=== PATIENT | male | born 1935 | race Caucasian/White ===

== ENCOUNTER 2020-01-18 21:04 | Inpatient (IN) | payer BC, MEDICARE ==
[2020-01-18] MEDS ORDERED: SODIUM CHLORIDE 0.9% 1,000 ML IV STA (21:24)
--- NOTE | 2020-01-18 21:27 | ED ---
General Adult HPI - General Chief complaint: Altered Mental Status Stated complaint: Weakness Time Seen by Provider: 01/18/20 21:06 Source: patient, EMS, RN notes reviewed Mode of arrival: EMS Limitations: altered mental status - History of Present Illness Initial comments: Patient is a pleasant 84-year-old male presenting to the emergency Department wi th left-sided weakness. Onset of symptoms was yesterday morning, over 24 hours ago now. Patient was noticed to have left-sided arm and leg weakness is reported by EMS. Patient states he feels fine and has no complaints. Patient denies any weakness. Patient denies confusion. EMS reports the patient does have dementia. Unclear patient has history of similar symptoms previously. - Related Data Home Medications Medication Instructions Recorded Confirmed Aspirin EC [Ecotrin Low Dose] 81 mg PO BID 09/05/14 01/18/20 Atenolol [Tenormin] 25 mg PO DAILY 09/05/14 01/18/20 Donepezil [Aricept] 20 mg PO HS 09/05/14 01/18/20 Memantine [Namenda] 10 mg PO BID 09/05/14 01/18/20 Omeprazole [PriLOSEC] 20 mg PO AC-BRKFST 09/05/14 01/18/20 Nitroglycerin Sl Tabs [Nitrostat] 0.4 mg SUBLINGUAL Q5M PRN 06/08/16 01/18/20 Etodolac [Lodine] 400 mg PO BID 01/18/20 01/18/20 Multivitamins, Thera [Multivitamin 1 tab PO DAILY 01/18/20 01/18/20 (formulary)] Simvastatin [Zocor] 80 mg PO HS 01/18/20 01/18/20 Allergies Allergy/AdvReac Type Severity Reaction Status Date / Time latex Allergy Rash/Hives Verified 01/18/20 22:01 Review of Systems ROS Statement: Those systems with pertinent positive or pertinent negative responses have been documented in the HPI. ROS Other: All systems not noted in ROS Statement are negative. Constitutional: Denies: fever Eyes: Denies: eye pain ENT: Denies: ear pain Respiratory: Denies: cough, dyspnea Cardiovascular: Denies: chest pain Endocrine: Denies: fatigue Gastrointestinal: Denies: abdominal pain Genitourinary: Denies: dysuria Musculoskeletal: Denies: back pain Skin: Denies: rash Neurological: Reports: as per HPI Past Medical History Past Medical History: Coronary Artery Disease (CAD), Chest Pain / Angina, Dementia, Hyperlipidemia, Hypertension History of Any Multi-Drug Resistant Organisms: None Reported Past Surgical History: Heart Catheterization With Stent Additional Past Surgical History / Comment(s): Eye surgery Past Anesthesia/Blood Transfusion Reactions: No Reported Reaction Date of Last Stent Placement:: 2006 Past Psychological History: No Psychological Hx Reported Smoking Status: Never smoker Past Alcohol Use History: None Reported Past Drug Use History: None Reported - Past Family History Mother Family Medical History: No Reported History General Exam Limitations: altered mental status General appearance: alert, in no apparent distress Head exam: Present: normocephalic Eye exam: Present: normal appearance, PERRL, EOMI ENT exam: Present: normal oropharynx Neck exam: Present: normal inspection Respiratory exam: Present: normal lung sounds bilaterally Cardiovascular Exam: Present: regular rate, normal rhythm GI/Abdominal exam: Present: soft. Absent: tenderness Extremities exam: Present: normal inspection Neurological exam: Present: alert, CN II-XII intact Expanded Neurological exam: Present: protecting the airway Patient oriented to: Present: person, place. Absent: time Speech: Present: fluid speech Cranial nerves: EOM's Intact: Normal Sensory exam: Upper Extremity Light Touch: Normal, Lower Extremity Light Touch: Normal Motor strength exam: RUE: 5, LUE: 4, RLE: 5, LLE: 4 Eye Response: (4) open spontaneously Motor Response: (6) obeys commands Verbal Response: (5) oriented Psychiatric exam: Present: normal affect, normal mood Skin exam: Present: normal color Course Vital Signs 01/18/20 21:12 Temperature 98.0 F Pulse Rate 64 Respiratory 16 Rate Blood Pressure 142/74 O2 Sat by Pulse 97 Oximetry EKG Findings - EKG Comments: EKG Findings:: Sinus rhythm at 63. First-degree AV block GA of 214. QRS 92. QT 408. QTC 417. Left axis. Normal QRS. No acute ST change Medical Decision Making - Medical Decision Making Patient reevaluated and resting comfortably in bed. Further discussion had with . She states onset of symptoms was noticed yesterday morning. This makes last known well up to 48 hours. Patient is not a candidate for emergent thrombectomy however secondary to CT results CTa will be ordered. Patient is also not a candidate for TPA secondary to last known well 48 hours. Case was discussed in detail with Dr. pang, who will admit covering for Dr. Hart. She will admit. Patient and family updated on results and plan. - Lab Data Result diagrams: 01/18/20 22:05 01/18/20 22:05 Lab Results 01/18/20 01/18/20 01/18/20 Range/Units 22:05 22:05 22:05 WBC 5.6 (3.8-10.6) k/uL RBC 4.35 (4.30-5.90) m/uL Hgb 14.3 (13.0-17.5) gm/dL Hct 42.4 (39.0-53.0) % MCV 97.3 (80.0-100.0) fL MCH 32.8 (25.0-35.0) pg MCHC 33.7 (31.0-37.0) g/dL RDW 12.8 (11.5-15.5) % Plt Count 229 (150-450) k/uL Neutrophils % 62 % Lymphocytes % 22 % Monocytes % 9 % Eosinophils % 4 % Basophils % 0 % Neutrophils # 3.4 (1.3-7.7) k/uL Lymphocytes # 1.2 (1.0-4.8) k/uL Monocytes # 0.5 (0-1.0) k/uL Eosinophils # 0.2 (0-0.7) k/uL Basophils # 0.0 (0-0.2) k/uL PT 9.9 (9.0-12.0) sec INR 1.0 (<1.2) APTT 23.9 (22.0-30.0) sec Sodium 132 L (137-145) mmol/L Potassium 4.3 (3.5-5.1) mmol/L Chloride 97 L (98-107) mmol/L Carbon Dioxide 27 (22-30) mmol/L Anion Gap 8 mmol/L BUN 20 (9-20) mg/dL Creatinine 0.79 (0.66-1.25) mg/dL Est GFR (CKD-EPI)AfAm >90 (>60 ml/min/1.73 sqM) Est GFR (CKD-EPI)NonAf 82 (>60 ml/min/1.73 sqM) Glucose 118 H (74-99) mg/dL Calcium 9.1 (8.4-10.2) mg/dL Total Bilirubin 0.4 (0.2-1.3) mg/dL AST 26 (17-59) U/L ALT 20 (4-49) U/L Alkaline Phosphatase 65 (38-126) U/L Total Protein 6.4 (6.3-8.2) g/dL Albumin 3.8 (3.5-5.0) g/dL - Radiology Data Radiology results: report reviewed (Computed tomography scan of the brain shows degeneration and suspected remote ischemic changes. With no evidence of acute hemorrhage. Hyperdensity of the basilar artery. Area of ischemia left occipital lobe.), image reviewed (Two-view chest x-ray shows mild infiltrate/atelectasis) Disposition Clinical Impression: CVA (cerebral vascular accident) Disposition: ADMITTED IP TO THIS HOSP Is patient prescribed a controlled substance at d/c from ED?: No Referrals: Abhinav Hart III, MD [Primary Care Provider] - 1-2 days Decision Time: 22:47
--- NOTE | 2020-01-18 22:10 | XR ---
EXAMINATION TYPE: XR chest 2V DATE OF EXAM: 01/18/2020 COMPARISON: 09/05/2014 HISTORY: altered mental status. Chest pain. TECHNIQUE: FINDINGS: There is some linear density in the mid and lower lung andrade. There is elevation of the di aphragms. There is no heart failure. Thoracic aorta appears intact. Bony thorax is intact. IMPRESSION: There is some mild linear infiltrate and atelectasis at the lung bases slightly worse gay n last exam. No heart failure seen.
--- NOTE | 2020-01-18 22:11 | CT ---
EXAMINATION TYPE: CT brain wo con DATE OF EXAM: 01/18/2020 COMPARISON: 11/01/2011 HISTORY: Confusion. CT DLP: 1129.4 mGycm Automated exposure control for dose reduction was used. FINDINGS: Areas of hyperdensity within the basilar artery. This may be calcification. Moderate generalized dege nerative change seen. Area of low-attenuation seen in the left occipital lobe is nonspecific likely i n the basis of remote ischemia. Faint areas of abnormal signal involving the basal ganglia suggestive of remote ischemia. Low-attenuation the white matter is nonspecific but most likely in the bases rem ote ischemia. Moderate generalized degenerative changes. Punctate areas of abnormal density in the ba keshia ganglia most typical remote ischemia. IMPRESSION: 1. Degenerative and suspected remote ischemic change with no evidence of acute hemorrhage. 2. There is a hyperdensity seen within the basilar artery on image 12. This could represent a calcifi cation. Recommend correlation with CTA to exclude thrombosis. 3. Findings suggest area of ischemia involving the left occipital lobe not seen on the prior exam. Th is could been the basis of a subacute to chronic infarct. Correlate with MRI.
[2020-01-18 22:32] LABS: Basophils % (A) 0 %; Eosinophils # (A) 0.2 k/uL (0-0.7); Eosinophils % (A) 4 %; HCT 42.4 % (39.0-53.0); HGB 14.3 gm/dL (13.0-17.5); Lymphocytes # (A) 1.2 k/uL (1.0-4.8); Lymphocytes % (A) 22 %; MCH 32.8 pg (25.0-35.0); MCHC 33.7 g/dL (31.0-37.0); MCV 97.3 fL (80.0-100.0); Mean Platelet Volume 7.4; Monocytes # (A) 0.5 k/uL (0-1.0); Monocytes % (A) 9 %; Neutrophils # (A) 3.4 k/uL (1.3-7.7); Neutrophils % (A) 62 %; Platelet Count 229 k/uL (150-450); RBC 4.35 m/uL (4.30-5.90); RDW 12.8 % (11.5-15.5); WBC 5.6 k/uL (3.8-10.6)
[2020-01-18 22:34] LABS: ALT 20 U/L (4-49); AST 26 U/L (17-59); African American GFR (CKD) >90 (>60 ml/min/1.73 sqM); Albumin 3.8 g/dL (3.5-5.0); Alkaline Phosphatase 65 U/L (38-126); Anion Gap 8 mmol/L; Blood Urea Nitrogen 20 mg/dL (9-20); Calcium 9.1 mg/dL (8.4-10.2); Carbon Dioxide 27 mmol/L (22-30); Chloride 97 mmol/L (98-107); Glucose 118 mg/dL (74-99); Non-African American GFR(CKD) 82 (>60 ml/min/1.73 sqM); Potassium 4.3 mmol/L (3.5-5.1); Sodium 132 mmol/L (137-145); Total Bilirubin 0.4 mg/dL (0.2-1.3); Total Protein 6.4 g/dL (6.3-8.2)
[2020-01-18 22:37] LABS: Partial Thromboplastin Time 23.9 sec (22.0-30.0); Prothrombin Time 9.9 sec (9.0-12.0)
[2020-01-18] MEDS ORDERED: ASPIRIN 325 MG TAB PO STA (22:52)
[2020-01-18] MEDS: SODIUM CHLORIDE 0.9% 1,000 ML IV SCH (23:18)
[2020-01-18] MEDS: ASPIRIN 325 MG TAB PO SCH (23:29)
--- NOTE | 2020-01-18 23:41 | CT ---
EXAMINATION TYPE: CT angio head neck DATE OF EXAM: 01/18/2020 COMPARISON: None HISTORY: AMS CT DLP: 615.2 mGycm Automated exposure control for dose reduction was used. CONTRAST: Performed with IV Contrast, patient injected with 65 mL of Isovue 370. There are 3-D post processed images. There is normal branching pattern of the great vessels on the aortic arch. There is bilateral arteria l flow in the subclavian arteries. There is arterial flow in the common internal and external carotid arteries bilaterally. There is plaque formation at the right carotid artery bifurcation and lumen na rrowing up to 25%. There is arterial flow in both vertebral arteries. There is arterial flow in the v ertebrobasilar artery system. There is no evidence of carotid or vertebral artery aneurysm or dissect ion. There is arterial flow in the anterior middle and posterior cerebral arteries. There is normal contra st opacification of the venous sinuses. There is no significant flow in the posterior communicating a rteries. There is apparent stenosis of the proximal left anterior cerebral artery. Right anterior cer ebral artery probably fills to a large extent through the anterior communicating artery from the left side. There is no mass effect. There is no evidence of intracranial aneurysm or neovascularity. 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 Minimal plaque at the right carotid artery bifurcation.
[2020-01-19 06:19] LABS: Cholesterol 137 mg/dL (<200); HDL Cholesterol 53 mg/dL (40-60); LDL Cholesterol,Calculated 68 mg/dL (0-99); Triglycerides 79 mg/dL (<150)
[2020-01-19] MEDS ORDERED: ASPIRIN 325 MG TAB PO STA (10:25)
--- NOTE | 2020-01-19 12:37 | ECHOF ---
Referral Reason:Thrombus MEASUREMENTS -------- HEIGHT: 177.8 cm WEIGHT: 87.1 kg BP: 158/80 RVIDd: 3.1 cm (< 3.3) IVSd: 1.5 cm (0.6 - 1.1) LVIDd: 4.6 cm (3.9 - 5.3) LVPWd: 1.5 cm (0.6 - 1.1) IVSs: 1.9 cm LVIDs: 2.3 cm LVPWs: 1.9 cm LA Diam: 2.9 cm (2.7 - 3.8) LAESV Index (A-L): 19.56 ml/m Ao Diam: 3.5 cm (2.0 - 3.7) AV Cusp: 2.1 cm (1.5 - 2.6) MV EXCURSION: 14.924 mm (> 18.000) MV EF SLOPE: 47 mm/s (70 - 150) EPSS: 0.4 cm MV E Paulo: 0.79 m/s MV DecT: 214 ms MV A Paulo: 1.01 m/s MV E/A Ratio: 0.78 FINDINGS -------- Sinus rhythm. This was a technically adequate study. The left ventricular size is normal. There is moderate concentric left ventricular hypertrophy. O verall left ventricular systolic function is normal with, an EF between 55 - 60 %. The right ventricle is normal in size. Normal LA size by volume 22+/-6 ml/m2. The right atrial size is normal. Interatrial and interventricular septum intact. There is mild aortic valve sclerosis. There is mild aortic regurgitation. Mild mitral annular calcification present. Mild mitral regurgitation is present. The tricuspid valve appears structurally normal. No regurgitation noted Trace/mild (physiologic) pulmonic regurgitation. The aortic root size is normal. Normal inferior vena cava with normal inspiratory collapse consistent with estimated right atrial pre ssure of 5 mmHg. There is no pericardial effusion. CONCLUSIONS -------- 1. There is moderate concentric left ventricular hypertrophy. 2. Overall left ventricular systolic function is normal with, an EF between 55 - 60 %. 3. Normal LA size by volume 22+/-6 ml/m2. 4. There is mild aortic valve sclerosis. 5. There is mild aortic regurgitation. 6. Mild mitral regurgitation is present. 7. Trace/mild (physiologic) pulmonic regurgitation. HEALTH INFORMATION PROVIDER: Laine Ashley RDCS
[2020-01-19] MEDS ORDERED: NITROGLYCERIN SL TABS 0.4 MG TAB SUBLINGUAL PRN (13:21)
[2020-01-19] MEDS ORDERED: NON FORMULARY DRUG (Aspirin Ec 81 MG) PO SCH (13:30)
--- NOTE | 2020-01-19 15:12 | P.CNNES ---
History of Present Illness Consult date: 01/19/20 Requesting physician: Samson Martin Reason for Consult: CVA History of Present Illness: Patient is a 84-year-old male brought to the hospital yesterday at 9:04 PM for left-sided weakness that has been present for over 24 hours. Patient has history of dementia, therefore not able to provide any history. Patient was brought to the hospital for left-sided weakness that has been present for >24 hours. He was noted to have left-sided arm and leg weakness as per EMS report. Patient did not complain of any focal symptoms. Patient was not a candidate for TPA. Patient's blood pressure on arrival was 142/74, pulse rate [address] head showed degenerative and suspected remote ischemic change with no evide nce of acute hemorrhage. There is hyperdensity seen within the basilar artery on image 12. This could represent calcification. Recommend correlation with CTA to exclude thrombosis. Findings suggest area of ischemia involving the left occipital lobe not seen on the prior exam. This could be on the basis of subacute to chronic infarct. Correlate with MRI. Chest x-ray showed some mild linear infiltrate and atelectasis at the lung bases slightly worse than last exam. No heart failure. EKG showed sinus rhythm with first-degree AV block. Left axis deviation. Cannot rule out anterior infarct, age undetermined. 2-D echo showed moderate concentric LVH, EF is between 55-60%. Normal left atrial size. Mild aortic valve sclerosis. CT angiography of head and neck showed a long segment of stenosis of the proximal right anterior cerebral artery. Minimal plaque at the right carotid artery bifurcation. The vertebrobasilar system appears intact. Normal contrast in the venous sinuses. Patient's lipid panel showed cholesterol 137, LDL 68, HDL 53, triglycerides 79. Liver panel normal, sodium 132 potassium 4.3. CBC normal. UA negative. Patient does take aspirin 81 mg, simvastatin 80 mg, donepezil 10 mg and Namenda 10 mg twice a day at home. Patient states that he lives in "[facility]". He states he has 4 children, 3 boys and a girl. He denies use of tobacco, alcohol or diabetes. Review of Systems Denies headache, problem with the vision holster so to dysphagia. Denies chest pain abdominal pain nausea vomiting diarrhea. Past Medical History Past Medical History: Coronary Artery Disease (CAD), Chest Pain / Angina, Dementia, Hyperlipidemia, Hypertension History of Any Multi-Drug Resistant Organisms: None Reported Past Surgical History: Heart Catheterization With Stent Additional Past Surgical History / Comment(s): Eye surgery Past Anesthesia/Blood Transfusion Reactions: No Reported Reaction Date of Last Stent Placement:: 2006 Past Psychological History: No Psychological Hx Reported Smoking Status: Never smoker Past Alcohol Use History: None Reported Past Drug Use History: None Reported - Past Family History Mother Family Medical History: No Reported History Medications and Allergies Home Medications Medication Instructions Recorded Confirmed Type Aspirin EC [Ecotrin Low Dose] 81 mg PO BID 09/05/14 01/18/20 History Atenolol [Tenormin] 25 mg PO DAILY 09/05/14 01/18/20 History Donepezil [Aricept] 20 mg PO HS 09/05/14 01/18/20 History Memantine [Namenda] 10 mg PO BID 09/05/14 01/18/20 History Omeprazole [PriLOSEC] 20 mg PO AC-BRKFST 09/05/14 01/18/20 History Nitroglycerin Sl Tabs [Nitrostat] 0.4 mg SUBLINGUAL Q5M PRN 06/08/16 01/18/20 History Etodolac [Lodine] 400 mg PO BID 01/18/20 01/18/20 History Multivitamins, Thera [Multivitamin 1 tab PO DAILY 01/18/20 01/18/20 History (formulary)] Simvastatin [Zocor] 80 mg PO HS 01/18/20 01/18/20 History Allergies Allergy/AdvReac Type Severity Reaction Status Date / Time latex Allergy Rash/Hives Verified 01/18/20 22:01 Physical Examination - Vital Signs Vital Signs: Vital Signs Temp Pulse Pulse Resp BP BP Pulse Ox 01/19/20 12:00 98 F 61 16 147/63 98 01/19/20 08:00 97.9 F 69 16 151/82 95 01/19/20 04:00 99.2 F 62 17 158/80 95 01/19/20 00:40 58 L 18 01/19/20 00:26 97.9 F 58 L 18 144/75 97 01/18/20 23:24 60 16 146/79 97 01/18/20 21:12 98.0 F 64 16 142/74 97 Intake and Output 04/09/2601/19/20 01/19/20 22:59 06:59 14:59 Intake Total 400 Output Total 200 Balance 400 -200 Intake: Intake, IV Titration 400 Amount Sodium Chloride 0.9% 1, 400 000 ml @ 100 mls/hr IV . Q10H STA Rx#:[id number] Output: Urine 200 Other: Voiding Method Urinal Urinal Incontinent Incontinent Weight 81.647 kg 87.5 kg On examination patient is an elderly male, in no distress. Patient is alert and awake. Speech and language functions are normal. Patient can name and repeat very well. Patient thinks it is winter season, the month of August, could not tell the year. Patient could not tell name of the current president, even after he was given 5 choices, she could not pick Trump. He states he was born in 2034 and he is in "70s" age. Patient was able to look at the front board stating [place] Simmons. He knew that he is in [place]. On cranial examination pupils are round and reactive to light, visual andrade are full on confrontation with no neglect. Extraocular muscles are intact. Face is symmetric and tongue protrudes the midline. On muscle strength testing patient has mild left pronator drift. The strength is normal in the arms and legs, except left hip, which was 5-, rest of the strength testing is normal in the arms and legs bilaterally. Sensations are equal with no neglect on double simultaneous stimulation. Patient has ataxia for [id number] testing on the left. Reflexes are symmetric, and patient has Babinskis on the left side. Bulk of muscles normal. Results - Laboratory Findings CBC and BMP: 01/18/20 22:05 01/18/20 22:05 Abnormal Lab Findings: Abnormal Labs 01/18/20 22:05 Sodium 132 L Chloride 97 L Glucose 118 H Assessment and Plan Assessment: * 84-year-old male with history of dementia, presented with mild left-sided weakness. Possible CVA versus TIA. * Cognitive impairment. Plan: * Patient had a possible CVA. Workup did not reveal any evidence of embolic source. * We will check MRI of the brain to confirm acute stroke. * Hemoglobin A1c. * Patient was on aspirin 81 mg daily. The dose has been increased to 325 mg. Continue Lipitor 40 mg. * Continue Aricept and Namenda 10 mg twice a day for dementia.
[2020-01-19] MEDS: ATORVASTATIN 40 MG TAB PO SCH (15:30)
[2020-01-19] MEDS: SODIUM CHLORIDE 0.9% 1,000 ML IV SCH ×2 (17:45→19:55)
[2020-01-19] MEDS: DONEPEZIL 10 MG TAB PO SCH (19:54)
[2020-01-19] MEDS: ETODOLAC 400 MG TAB PO SCH (19:54)
[2020-01-19] MEDS: MEMANTINE 10 MG TAB PO SCH (19:55)
[2020-01-19] MEDS ORDERED: QUEtiapine 25 MG TAB PO PRN (21:18)
[2020-01-19 21:53] LABS: Hemoglobin A1C 6.1 % (4.0-6.0)
--- NOTE | 2020-01-20 01:34 | P.HPIM ---
History of Present Illness H&P Date: 01/19/20 Chief Complaint: CVA Mr. Borja is an 84-year-old male with a past medical history of coronary artery disease, dementia, hypertension, hyperlipidemia coming to the hospital with a chief complaint of left-sided weakness that has been going on for almost 1 day. Patient is a very poor historian due to history of dementia so most of the history is obtained from the nursing staff report and ER notes. At the time of admission he was not a candidate for TPA. CT of the head was done showing remote ischemic changes with no evidence of acute hemorrhage. 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 EKG showed first-degree AV heart block. Patient's labs have been reviewed at the time of admission sodium 134 potassium 4.3 chloride 97 BUN 20 creatinine 0.79 hemoglobin A1c of 6.1 troponin less than 0.012 CBC within normal limits. He has been admitted for further management with neurology consult. Review of systems -could not be done as the patient is confused and has been trying to get out of the bed. As per the nursing staff patient has dementia and has been trying to get out of the bed and he keeps saying that he has to urinate even though she helped him few minutes back. Review of Systems ROS unobtainable: due to mental status Past Medical History Past Medical History: Coronary Artery Disease (CAD), Chest Pain / Angina, Dementia, Hyperlipidemia, Hypertension History of Any Multi-Drug Resistant Organisms: None Reported Past Surgical History: Heart Catheterization With Stent Additional Past Surgical History / Comment(s): Eye surgery Past Anesthesia/Blood Transfusion Reactions: No Reported Reaction Date of Last Stent Placement:: 2006 Past Psychological History: No Psychological Hx Reported Smoking Status: Never smoker Past Alcohol Use History: None Reported Past Drug Use History: None Reported - Past Family History Mother Family Medical History: No Reported History Medications and Allergies Home Medications Medication Instructions Recorded Confirmed Type Aspirin EC [Ecotrin Low Dose] 81 mg PO BID 09/05/14 01/18/20 History Atenolol [Tenormin] 25 mg PO DAILY 09/05/14 01/18/20 History Donepezil [Aricept] 20 mg PO HS 09/05/14 01/18/20 History Memantine [Namenda] 10 mg PO BID 09/05/14 01/18/20 History Omeprazole [PriLOSEC] 20 mg PO AC-BRKFST 09/05/14 01/18/20 History Nitroglycerin Sl Tabs [Nitrostat] 0.4 mg SUBLINGUAL Q5M PRN 06/08/16 01/18/20 History Etodolac [Lodine] 400 mg PO BID 01/18/20 01/18/20 History Multivitamins, Thera [Multivitamin 1 tab PO DAILY 01/18/20 01/18/20 History (formulary)] Simvastatin [Zocor] 80 mg PO HS 01/18/20 01/18/20 History Allergies Allergy/AdvReac Type Severity Reaction Status Date / Time latex Allergy Rash/Hives Verified 01/18/20 22:01 Physical Exam Vitals: Vital Signs Temp Pulse Pulse Resp BP BP Pulse Ox 01/19/20 12:00 98 F 61 16 147/63 98 01/19/20 08:00 97.9 F 69 16 151/82 95 01/19/20 04:00 99.2 F 62 17 158/80 95 01/19/20 00:40 58 L 18 01/19/20 00:26 97.9 F 58 L 18 144/75 97 01/18/20 23:24 60 16 146/79 97 01/18/20 21:12 98.0 F 64 16 142/74 97 Intake and Output 01/18/20 01/19/20 01/19/20 22:59 06:59 14:59 Intake Total 400 Output Total 200 Balance 400 -200 Intake: Intake, IV Titration 400 Amount Sodium Chloride 0.9% 1, 400 000 ml @ 100 mls/hr IV . Q10H STA Rx#:[id number] Output: Urine 200 Other: Voiding Method Urinal Urinal Incontinent Incontinent Weight 81.647 kg 87.5 kg Limitations: altered mental status General appearance: alert, in no apparent distress HENT - normcehalic, no pallor, no icterus Respiratory exam: normal lung sounds bilaterally Cardiovascular Exam: regular rate, normal rhythm GI/Abdominal exam: soft. Absent: tenderness Extremities exam: No edema. Neurological exam: Present: alert, follows simple commands, mild weakness of the left upper extremity. Psychiatric exam: Present: normal affect, normal mood Skin exam: Present: normal color Results CBC & Chem 7: 01/18/20 22:05 01/18/20 22:05 Labs: Abnormal Lab Results - Last 24 Hours (Table) 01/18/20 Range/Units 22:05 Sodium 132 L (137-145) mmol/L Chloride 97 L (98-107) mmol/L Glucose 118 H (74-99) mg/dL Thrombosis Risk Factor Assmnt - Choose All That Apply Each Risk Factor Represents 3 Points: Age 75 years or older Each Risk Factor Represents 5 Points: Stroke (< 1 month) Thrombosis Risk Factor Assessment Total Risk Factor Score: 8 Thrombosis Risk Factor Assessment Level: High Risk Assessment and Plan Assessment: ASSESSMENT Left-sided weakness possibly secondary to CVA Dementia Coronary artery disease Hypertension Hyperlipidemia PLAN: Patient has been started on aspirin and statin neurology on board. Stroke work-up in progress. Patient's home medications have been restarted. Continue with the current medication regimen. Overall prognosis is guarded. Further recommendations to follow depending on the progress of the patient.
[2020-01-20] MEDS: SODIUM CHLORIDE 0.9% 1,000 ML IV SCH ×2 (06:12→17:09)
[2020-01-20 06:34] LABS: Basophils % (A) 0 %; Eosinophils # (A) 0.3 k/uL (0-0.7); Eosinophils % (A) 5 %; HCT 47.1 % (39.0-53.0); HGB 15.7 gm/dL (13.0-17.5); Lymphocytes % (A) 15 %; MCH 32.3 pg (25.0-35.0); MCHC 33.2 g/dL (31.0-37.0); MCV 97.3 fL (80.0-100.0); Mean Platelet Volume 7.1; Monocytes # (A) 0.6 k/uL (0-1.0); Monocytes % (A) 8 %; Neutrophils # (A) 4.7 k/uL (1.3-7.7); Neutrophils % (A) 69 %; Platelet Count 250 k/uL (150-450); RBC 4.84 m/uL (4.30-5.90); RDW 12.9 % (11.5-15.5); WBC 6.8 k/uL (3.8-10.6)
[2020-01-20] MEDS: PANTOPRAZOLE 40 MG TABLET PO SCH (06:35)
[2020-01-20 06:36] LABS: African American GFR (CKD) >90 (>60 ml/min/1.73 sqM); Anion Gap 8 mmol/L; Blood Urea Nitrogen 13 mg/dL (9-20); Calcium 9.3 mg/dL (8.4-10.2); Carbon Dioxide 26 mmol/L (22-30); Chloride 103 mmol/L (98-107); Glucose 105 mg/dL (74-99); Non-African American GFR(CKD) 88 (>60 ml/min/1.73 sqM); Potassium 3.8 mmol/L (3.5-5.1); Sodium 137 mmol/L (137-145)
[2020-01-20] MEDS: MULTIVITAMINS, THERA 1 EACH TAB PO SCH (08:46)
[2020-01-20] MEDS: ATORVASTATIN 40 MG TAB PO SCH (08:46)
[2020-01-20] MEDS: ETODOLAC 400 MG TAB PO SCH (08:46)
[2020-01-20] MEDS: ASPIRIN 325 MG TAB PO SCH (08:46)
[2020-01-20] MEDS: MEMANTINE 10 MG TAB PO SCH ×2 (08:46→21:37)
--- NOTE | 2020-01-20 13:29 | MR ---
EXAMINATION TYPE: MR brain wo con DATE OF EXAM: 01/20/2020 COMPARISON: Correlation CT 01/18/2020 HISTORY: 84-year-old male with Confusion, CVA TECHNIQUE: Multiplanar, multisequence images of the brain and brainstem were acquired without IV con trast. Diffusion weighted imaging is performed. FINDINGS: There is an 8 mm focus of restricted diffusion located in the region of the lateral right thalamus/po sterior limb right internal capsule. No other restricted diffusion is seen. There is corresponding br ight T2/FLAIR weighted signal. There is additional moderate patchy and confluent bright white matter change in the periventricular d eep white matter regions of both cerebral hemispheres and patchy changes in the paramedian brigette as we ll. No evidence for mass, mass effect, midline shift, herniation, effacement of basal cisterns, or extra- axial fluid collection. There is moderate generalized supratentorial volume loss and secondary mild ventricular prominence. To the extent visualized, major intracranial flow voids are intact. Midline structures demonstrate normal morphology. The craniocervical junction is normal. The visualized sinuses are clear and the globes are intact. IMPRESSION: 1. An 8 mm focus of acute infarct located either in the lateral right thalamus or posterior limb righ t internal capsule. Bright T2 signal indicates that this is greater than 6 hours in duration. Clinica lly correlate. No mass effect or midline shift. 2. Moderate generalized atrophy and moderate patchy and confluent changes of chronic small vessel isc hemic disease.
--- NOTE | 2020-01-20 15:10 | P.PN ---
Subjective Progress Note Date: 01/20/20 Patient offers no complaints. No new neurological symptoms. Patient is laying in the bed, comfortable. Denies headache. Objective - Vital Signs Vital signs: Vital Signs Temp 97.8 F 01/20/20 08:40 Pulse 70 01/20/20 11:00 Resp 16 01/20/20 11:00 BP 145/87 01/20/20 11:00 Pulse Ox 95 01/20/20 11:00 Intake & Output 01/19/20 01/20/20 01/20/20 18:59 06:59 18:59 Intake Total 200 540 420 Output Total 600 400 Balance -400 140 420 Weight 64.5 kg Intake: Oral 200 540 420 Output: Urine 600 400 Other: Voiding Method Urinal Urinal Urinal Incontinent Incontinent Incontinent # Voids 1 1 - Exam Patient is alert and awake. Mentation is stable. Speech and language functions appears normal. Cranial nerves are normal. Muscle strength shows left pronator drift. The strength appears normal in the arms and legs except left hip flexion 5-, and left bicycle repairman 5-. Patient is ataxic for [id number] testing on the left. Sensations are equal. Tone and bulk of muscles normal. - Labs CBC & Chem 7: 01/20/20 05:57 01/20/20 05:57 Labs: Abnormal Lab Results - Last 24 Hours (Table) 01/18/20 01/20/20 Range/Units 22:05 05:57 Creatinine 0.65 L (0.66-1.25) mg/dL Glucose 105 H (74-99) mg/dL Hemoglobin A1c 6.1 H (4.0-6.0) % Assessment and Plan Assessment: * 84-year-old male with history of dementia, presented with mild acute left ataxic hemiparesis. MRI of the brain revealed acute ischemic stroke, involving the posterior limb of right internal capsule, most likely lacunar stroke. * Cognitive impairment. Plan: * MRI of the brain confirmed acute ischemic stroke involving the posterior limb of right internal capsule, likely lacunar ischemic stroke. No embolic source noted on the echo and CTA. * Hemoglobin A1c 6.1. * Patient was on aspirin 81 mg daily. The dose has been increased to 325 mg. Continue Lipitor 40 mg. We will add Plavix 75 mg daily for 21 days, then stay on aspirin 325 mg daily. * Continue Aricept and Namenda 10 mg twice a day for dementia. * Do not treat blood pressure at this time. Blood pressure 145/87, which is optimal. * PT and OT. Consider consultation with physical medicine and rehabilitation.
[2020-01-20] MEDS: CLOPIDOGREL 75 MG TAB PO SCH (17:38)
--- NOTE | 2020-01-20 18:58 | P.PN ---
Subjective Mr. Borja is an 84-year-old male with a past medical history of coronary artery disease, dementia, hypertension, hyperlipidemia coming to the hospital with a chief complaint of left-sided weakness that has been going on for almost 1 day. Patient is a very poor historian due to history of dementia so most of the history is obtained from the nursing staff report and ER notes. At the time of admission he was not a candidate for TPA. CT of the head was done showing remote ischemic changes with no evidence of acute hemorrhage. 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 EKG showed first-degree AV heart block. Patient's labs have been reviewed at the time of admission sodium 134 potassium 4.3 chloride 97 BUN 20 creatinine 0.79 hemoglobin A1c of 6.1 troponin less than 0.012 CBC within normal limits. He has been admitted for further management with neurology consult. Review of systems -could not be done as the patient is confused and has been trying to get out of the bed. As per the nursing staff patient has dementia and has been trying to get out of the bed and he keeps saying that he has to urinate even though she helped him few minutes back. 01/20/2020 Patient was lying in bed, awake and alert however she looks confused mildly, she is unaware of her presentation. She also has some slurred speech. Patient is hemodynamically stable, her CBC and BMP are unremarkable. LDL 68 Brain MRI showing a right thalamic versus right internal capsule acute infarct She is currently on normal saline at 100 lower to 50 mL per hour, also patient was started on aspirin 325 mg. Neurologist is on the case Review of systems CONSTITUTIONAL: No fever, no malaise, no fatigue. HEENT: No recent visual problems or hearing problems. Denied any sore throat. CARDIOVASCULAR: No orthopnea, PND, no palpitations, no syncope. PULMONARY: No shortness of breath, no cough, no hemoptysis. GASTROINTESTINAL: No diarrhea, no nausea, no vomiting, no abdominal pain. Normoactive bowel sounds. HEMATOLOGICAL: Denies any bleeding or petechiae. GENITOURINARY: Denies any burning micturition, frequency, or urgency. MUSCULOSKELETAL/RHEUMATOLOGICAL: Denies any joint pain, swelling, or any muscle pain. ENDOCRINE: Denies any polyuria or polydipsia. Active Medications Generic Name Dose Route Start Last Admin Trade Name Freq PRN Reason Stop Dose Admin Aspirin 325 mg 01/19/20 22:53 01/20/20 08:46 Aspirin PO 325 mg DAILY MACARIO Administration Atorvastatin Calcium 40 mg 01/19/20 13:30 01/20/20 08:46 Lipitor PO 40 mg DAILY MACARIO Administration Clopidogrel Bisulfate 75 mg 01/20/20 15:15 01/20/20 17:38 Plavix PO 75 mg DAILY [facility]IO Administration Donepezil HCl 20 mg 01/19/20 21:00 01/19/20 19:54 Aricept PO 20 mg HS MACARIO Administration Sodium Chloride 1,000 mls @ 50 mls/hr 01/18/20 23:00 01/20/20 17:09 Saline 0.9% IV Not Given .Q20H [facility] Memantine 10 mg 01/19/20 21:00 01/20/20 08:46 Namenda PO 10 mg BID MACARIO Administration Multivitamins 1 each 01/20/20 09:00 01/20/20 08:46 Theragran PO 1 each DAILY [facility] Administration Nitroglycerin 0.4 mg 01/19/20 13:21 Nitrostat SUBLINGUAL Q5M PRN Chest Pain Pantoprazole Sodium 40 mg 01/20/20 07:30 01/20/20 06:35 Protonix PO 40 mg AC-BRKFST [facility] Administration Quetiapine Fumarate 25 mg 01/19/20 21:18 01/19/20 21:44 Seroquel PO 25 mg HS PRN Administration Agitation or Acute Anxiety Objective - Vital Signs Vital signs: Vital Signs Temp 97.6 F 01/20/20 15:10 Pulse 75 01/20/20 15:10 Resp 18 01/20/20 15:10 BP 136/78 01/20/20 15:10 Pulse Ox 96 01/20/20 15:10 Intake & Output 01/19/20 01/20/20 01/20/20 18:59 06:59 18:59 Intake Total 200 540 420 Output Total 600 400 Balance -400 140 420 Weight 64.5 kg Intake: Oral 200 540 420 Output: Urine 600 400 Other: Voiding Method Urinal Urinal Urinal Incontinent Incontinent Incontinent # Voids 1 1 - Exam -GENERAL: The patient is alert and oriented x1-2, not in any acute distress. Well developed, well nourished. HEENT: Pupils are round and equally reacting to light. EOMI. No scleral icterus. No conjunctival pallor. Normocephalic, atraumatic. No pharyngeal erythema. No thyromegaly. CARDIOVASCULAR: S1 and S2 present. No murmurs, rubs, or gallops. PULMONARY: Chest is clear to auscultation, no wheezing or crackles. ABDOMEN: Soft, nontender, nondistended, normoactive bowel sounds. No palpable organomegaly. MUSCULOSKELETAL: No joint swelling or deformity. EXTREMITIES: No cyanosis, clubbing, or pedal edema. -NEUROLOGICAL: Cranial nerves are grossly intact. Patient with left hemiparesis in the left upper and lower extremity. Sensation is intact SKIN: No rashes. no petechiae. - Labs CBC & Chem 7: 01/20/20 05:57 01/20/20 05:57 Labs: Abnormal Lab Results - Last 24 Hours (Table) 01/18/20 01/20/20 Range/Units 22:05 05:57 Creatinine 0.65 L (0.66-1.25) mg/dL Glucose 105 H (74-99) mg/dL Hemoglobin A1c 6.1 H (4.0-6.0) % Assessment and Plan Assessment: Left-sided weakness possibly secondary to CVA, right thalamic or internal cap sular infarct Dementia Coronary artery disease Hypertension Hyperlipidemia Plan: This is a pleasant 84 years old male who presents with acute stroke, Continue with aspirin and statins started by neurology service. Patient's home medications have been restarted. Continue with the current medication regimen. Overall prognosis is guarded. Further recommendations to follow depending on the progress of the patient. Labs and medication were reviewed.. Continue same treatment. Continue with symptomatic treatment. Resume home medication. Monitor lytes and vitals. DVT and GI prophylaxis. Further recommendations of the clinical course of the patient DVT prophylaxis: Subcutaneous heparin GI Prophylaxis: Pepcid PT/OT: Pending Prognosis is guarded
[2020-01-20] MEDS: DONEPEZIL 10 MG TAB PO SCH (21:37)
[2020-01-20] MEDS: FAMOTIDINE 20 MG/2 ML VIAL IV SCH (21:37)
[2020-01-20] MEDS: HEPARIN SODIUM,PORCINE 5,000 UNIT/ML 1 ML VIAL SQ SCH (21:37)
--- NOTE | 2020-01-20 23:03 | CT ---
EXAMINATION TYPE: CT brain wo con DATE OF EXAM: 01/20/2020 COMPARISON: 01/18/2020 HISTORY: fall Headache CT DLP: 1162.4 mGycm Automated exposure control for dose reduction was used. There is cerebral cortical atrophy. There is no mass effect nor midline shift. There is no sign of in tracranial hemorrhage. The calvarium is intact. IMPRESSION: Cerebral atrophy. No acute intracranial abnormality.
[2020-01-21] MEDS: SODIUM CHLORIDE 0.9% 1,000 ML IV SCH ×2 (02:24→15:59)
[2020-01-21] MEDS: PANTOPRAZOLE 40 MG TABLET PO SCH (07:02)
[2020-01-21] MEDS: MULTIVITAMINS, THERA 1 EACH TAB PO SCH (09:42)
[2020-01-21] MEDS: CLOPIDOGREL 75 MG TAB PO SCH (09:42)
[2020-01-21] MEDS: ATORVASTATIN 40 MG TAB PO SCH (09:42)
[2020-01-21] MEDS: HEPARIN SODIUM,PORCINE 5,000 UNIT/ML 1 ML VIAL SQ SCH ×2 (09:42→21:13)
[2020-01-21] MEDS: MEMANTINE 10 MG TAB PO SCH ×2 (09:42→21:12)
[2020-01-21] MEDS: ASPIRIN 325 MG TAB PO SCH (09:42)
[2020-01-21] MEDS: FAMOTIDINE 20 MG/2 ML VIAL IV SCH ×2 (09:43→21:12)
--- NOTE | 2020-01-21 10:59 | P.CONS ---
History of Present Illness - Chief Complaint Gait disturbance, left hemiparesthesias - History of Present Illness I had the opportunity to see patient for inpatient rehab consultation with regard to gait disturbance. Patient fan historian and history elicited from chart. He was admitted to [facility] January 17 acute onset left-sided weakness. Seen by neurology, Dr. Jose. Chest x-ray with atelectasis. Angiogram CT with right anterior cerebral stenosis. Brain MRI with right thalamic infarct. Head CT with cerebral atrophy. PT reports moderate assistance for transfers and gait 60 feet with roller walker with narrow base of support. OT reports moderate assistance for upper dressing, bathing, functional mobility and transfers. Total assistance for lower dressing and toileting. Speech therapy assess swallowing within functional limits and recommending pured, regular, thin liquid. Previous functional history as elicited from patient: He is unsure how old he is but he is 84-year-old right-handed white male who is lives in one floor home with . Both are retired. does cooking, laundry, driving. Patient previously independent with driving and standing shower and gait without device. Unsure of PMD. Denies tobacco. Rare drink. Review of Systems Review of systems: Patient fan historian. ENT: Denies sneezes or discharge. Eyes: Denies discharge or photophobia. Cardiac: Denies chest pain or palpitation. Pulmonary: Denies cough or shortness of breath. Gastrointestinal: Denies nausea, emesis, constipation, diarrhea. Genitourinary: Denies discharge or frequency. Musculoskeletal: Complains of back pain that patient attributes to bed. Neurologic: Unaware of any weakness but admitted with left-sided weakness. Endocrine: Denies shakes or sweats. Oncology: Denies cancers. Dermatologic: Denies rash, itching, pruritus. ALLERGY/immunology: Denies sneezes, rashes. Past Medical History Past Medical History: Coronary Artery Disease (CAD), Chest Pain / Angina, Dementia, Hyperlipidemia, Hypertension History of Any Multi-Drug Resistant Organisms: None Reported Past Surgical History: Heart Catheterization With Stent Additional Past Surgical History / Comment(s): Eye surgery Past Anesthesia/Blood Transfusion Reactions: No Reported Reaction Date of Last Stent Placement:: 2006 Past Psychological History: No Psychological Hx Reported Smoking Status: Never smoker Past Alcohol Use History: None Reported Past Drug Use History: None Reported - Past Family History Mother Family Medical History: No Reported History Medications and Allergies Home Medications Medication Instructions Recorded Confirmed Type Aspirin EC [Ecotrin Low Dose] 81 mg PO BID 09/05/14 01/18/20 History Atenolol [Tenormin] 25 mg PO DAILY 09/05/14 01/18/20 History Donepezil [Aricept] 20 mg PO HS 09/05/14 01/18/20 History Memantine [Namenda] 10 mg PO BID 09/05/14 01/18/20 History Omeprazole [PriLOSEC] 20 mg PO AC-BRKFST 09/05/14 01/18/20 History Nitroglycerin Sl Tabs [Nitrostat] 0.4 mg SUBLINGUAL Q5M PRN 06/08/16 01/18/20 History Etodolac [Lodine] 400 mg PO BID 01/18/20 01/18/20 History Multivitamins, Thera [Multivitamin 1 tab PO DAILY 01/18/20 01/18/20 History (formulary)] Simvastatin [Zocor] 80 mg PO HS 01/18/20 01/18/20 History Allergies Allergy/AdvReac Type Severity Reaction Status Date / Time latex Allergy Rash/Hives Verified 01/18/20 22:01 Physical Exam Vitals: Vital Signs Temp Pulse Resp BP Pulse Ox 01/21/20 09:41 98.1 F 78 16 152/93 95 01/21/20 04:00 98.2 F 75 16 132/90 95 01/21/20 00:00 75 19 158/94 96 01/20/20 20:00 98 F 79 18 156/86 95 01/20/20 15:10 97.6 F 75 18 136/78 96 01/20/20 11:00 70 16 145/87 95 Intake and Output 01/20/20 01/21/20 01/21/20 22:59 06:59 14:59 Intake Total 0 120 Balance 0 120 Intake: Oral 0 120 Other: Voiding Method Urinal Urinal Incontinent Incontinent # Voids 1 # Bowel Movements 1 Weight 71.5 kg Skin: Atrophic, intact. General: Medium build and comfortable appearance. Head: Normocephalic, atraumatic. Eyes: Symmetric. Pupils equal round. Ears: Symmetric. Hearing within normal limits. Mouth: Clear. Neck: Supple. Carotid without bruit. Cardiac: Regular rate and rhythm. Lungs: Clear anteriorly and posteriorly. Abdomen: Soft active nontender. Extremities: Normal tone. Neurological: Mental status: Alert, cooperative, pleasant. Cranial nerves: Symmetric facial tone and trapezius. Motor: Active movement all 4 limbs but apraxic left arm more so than left leg. Sensation: Intact throughout. DTRs: Symmetric and equal throughout. Mobility: Requires assistance for bed mobility. Results CBC & Chem 7: 01/20/20 05:57 01/20/20 05:57 Assessment and Plan (1) CVA (cerebral vascular accident) Current Visit: Yes Status: Acute Code(s): I63.9 - CEREBRAL INFARCTION, UNSPECIFIED SNOMED Code(s): 417872830 Plan: Impression: 1. Gait disturbance due to stroke result in left hemiparesthesias. 2. Dementia. 3. Coronary disease with history of angina. 4. Hypertension. 5. Dyslipidemia. Comments and plan: At this time PT, OT, FACILITY MAINTENANCE WORKER ongoing. Safety concerns noted appears to be able tolerate and benefit from therapies. Would appear to be rehab candidate pending family plan for return to home versus SNF.
[2020-01-21 11:06] LABS: Folate, Serum 20.5 ng/mL
[2020-01-21 11:33] LABS: Glucose,Whole Blood 185 mg/dL (75-99)
--- NOTE | 2020-01-21 13:29 | P.DS ---
Providers Date of admission: 01/18/20 22:54 Attending physician: Jennifer Oliva Consults: 01/18/20 22:53 Consult Physician Urgent Consulting Provider: Jono Jose Consult Reason/Comments: cva Do you want consulting provider notified?: Yes 01/20/20 21:11 Consult Physician Routine Consulting Provider: Ari Bergeron Consult Reason/Comments: stroke Do you want consulting provider notified?: Yes Primary care physician: Abhinav Hart Hospital Course: Diagnoses: Left-sided weakness possibly secondary to CVA, right thalamic or internal capsular infarct Dementia Coronary artery disease Hypertension Hyperlipidemia Hospital course: Mr. Borja is an 84-year-old male with a past medical history of coronary artery disease, dementia, hypertension, hyperlipidemia coming to the hospital with a chief complaint of left-sided weakness that has been going on for almost 1 day. Patient is a very poor historian due to history of dementia so most of the history is obtained from the nursing staff report and ER notes. At the time of admission he was not a candidate for TPA. CT of the head was done showing remote ischemic changes with no evidence of acute hemorrhage. 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 EKG showed first-degree AV heart block.Brain MRI showing a right thalamic versus right internal capsule acute infarct. Patient has been evaluated by neurologist and he was started on higher dose of aspirin at 325 mg to be continued as outpatient plus Plavix 75 mg daily for 21 days only evaluated the patient decides PT/OT and recommended rehab for the patient however patient and family refused and they want to go home with home care On the day of discharge patient denies new complaints, no chest pain or dyspnea, no abdominal pain, no nausea vomiting, no change in urine or bowel habits. No fever Patient was cleared for discharge by neurologist Patient was found stable and can be discharged home and guarded prognosis however he needs follow-up as an outpatient. Patient was instructed to follow up with PCP within one week and patient agrees -Gen: patient is a alert and awake, no distress, patient at baseline and is demented and has hard time understanding CVS: S1-S2, RRR, no murmur Lungs: B/L CTA, no wheezing Abdomen: soft, no distention, no tenderness, positive bowel sounds Extremity: no leg edema or induration Neuro: Mild confusion related to dementia, left hemiparesis, stable Time spent more than 35 minutes Plan - Discharge Summary New Discharge Prescriptions: No Action Omeprazole [PriLOSEC] 20 mg PO AC-BRKFST Memantine [Namenda] 10 mg PO BID Donepezil [Aricept] 20 mg PO HS Atenolol [Tenormin] 25 mg PO DAILY Aspirin EC [Ecotrin Low Dose] 81 mg PO BID Nitroglycerin Sl Tabs [Nitrostat] 0.4 mg SUBLINGUAL Q5M PRN PRN Reason: Chest Pain Simvastatin [Zocor] 80 mg PO HS Multivitamins, Thera [Multivitamin (formulary)] 1 tab PO DAILY Etodolac [Lodine] 400 mg PO BID Discharge Medication List Aspirin EC [Ecotrin Low Dose] 81 mg PO BID 09/05/14 [History] Atenolol [Tenormin] 25 mg PO DAILY 09/05/14 [History] Donepezil [Aricept] 20 mg PO HS 09/05/14 [History] Memantine [Namenda] 10 mg PO BID 09/05/14 [History] Omeprazole [PriLOSEC] 20 mg PO AC-BRKFST 09/05/14 [History] Nitroglycerin Sl Tabs [Nitrostat] 0.4 mg SUBLINGUAL Q5M PRN 06/08/16 [History] Etodolac [Lodine] 400 mg PO BID 01/18/20 [History] Multivitamins, Thera [Multivitamin (formulary)] 1 tab PO DAILY 01/18/20 [History] Simvastatin [Zocor] 80 mg PO HS 01/18/20 [History] Follow up Appointment(s)/Referral(s): Abhinav Hart III, MD [Primary Care Provider] - 1-2 days
--- NOTE | 2020-01-21 16:08 | P.PN ---
Subjective Progress Note Date: 01/21/20 Patient states his left arm appears weaker. Asking me why it is weak. Patient also suffered from a fall while going to bathroom last night. Repeat computed tomography scan of the head showed no bleed. Patient is laying in the bed, comfortable. Denies headache. Objective - Vital Signs Vital signs: Vital Signs Temp 97.8 F 01/21/20 15:55 Pulse 76 01/21/20 15:55 Resp 18 01/21/20 15:55 BP 137/79 01/21/20 15:55 Pulse Ox 96 01/21/20 15:55 Intake & Output 01/20/20 01/21/20 01/21/20 18:59 06:59 18:59 Intake Total 420 0 120 Balance 420 0 120 Weight 71.5 kg Intake: Oral 420 0 120 Other: Voiding Method Urinal Urinal Urinal Incontinent Incontinent Incontinent # Voids 1 # Bowel Movements 1 - Exam Patient is alert and awake. Mentation is stable. Speech and language functions appears normal. Cranial nerves revealed mild left facial weakness, which appears new. Muscle strength shows left pronator drift, worse than yesterday. The strength is normal in the right arm and right leg. On the left side, deltoid is 4, biceps 4+ to 5-, triceps 5 assistant teacher 5-. Hip flexion 4+ ankle dorsiflexion normal. Patient has clear Babinski on the left side. Sensations are equal. Patient is more significantly ataxic for [id number] testing on the left. Tone and bulk of muscles normal. - Labs CBC & Chem 7: 01/20/20 05:57 01/20/20 05:57 Labs: Abnormal Lab Results - Last 24 Hours (Table) 01/21/20 Range/Units 11:31 POC Glucose (mg/dL) 185 H (75-99) mg/dL Assessment and Plan Assessment: * Acute ischemic stroke, involving the posterior limb of right internal capsule, most likely lacunar stroke. Patient has left ataxic hemiparesis. Symptoms appears slightly worse. * Cognitive impairment. Plan: * Patient appears slightly worse today. Observe overnight. * PT OT has evaluated the patient and apparently cleared for discharge. * MRI of the brain confirmed acute ischemic stroke involving the posterior limb of right internal capsule, likely lacunar ischemic stroke. No embolic source noted on the echo and CTA. * Hemoglobin A1c 6.1. * Patient was on aspirin 81 mg daily. The dose has been increased to 325 mg. Continue Lipitor 40 mg. We will add Plavix 75 mg daily for 21 days, then stay on aspirin 325 mg daily. * Continue Aricept and Namenda 10 mg twice a day for dementia. * Blood pressure is 136/90 which is optimal. Patient not on any antihypertensive medication. May consider some IV fluids. * Physical medicine and rehabilitation consultation noted.
[2020-01-21] MEDS: DONEPEZIL 10 MG TAB PO SCH (21:12)
[2020-01-22] MEDS: PANTOPRAZOLE 40 MG TABLET PO SCH (06:41)
[2020-01-22] MEDS: SODIUM CHLORIDE 0.9% 1,000 ML IV SCH ×2 (09:05→09:27)
[2020-01-22] MEDS: HEPARIN SODIUM,PORCINE 5,000 UNIT/ML 1 ML VIAL SQ SCH (09:23)
[2020-01-22] MEDS: FAMOTIDINE 20 MG/2 ML VIAL IV SCH (09:23)
[2020-01-22] MEDS: MULTIVITAMINS, THERA 1 EACH TAB PO SCH (09:24)
[2020-01-22] MEDS: ATORVASTATIN 40 MG TAB PO SCH (09:24)
[2020-01-22] MEDS: CLOPIDOGREL 75 MG TAB PO SCH (09:24)
[2020-01-22] MEDS: MEMANTINE 10 MG TAB PO SCH (09:24)
[2020-01-22] MEDS: ASPIRIN 325 MG TAB PO SCH (09:24)
[2020-01-22 09:49] VITALS: RESP 20; TEMP 97.8
--- NOTE | 2020-01-22 12:40 | P.PN ---
Subjective Mr. Borja is an 84-year-old male with a past medical history of coronary artery disease, dementia, hypertension, hyperlipidemia coming to the hospital with a chief complaint of left-sided weakness that has been going on for almost 1 day. Patient is a very poor historian due to history of dementia so most of the history is obtained from the nursing staff report and ER notes. At the time of admission he was not a candidate for TPA. CT of the head was done showing remote ischemic changes with no evidence of acute hemorrhage. 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 EKG showed first-degree AV heart block. Patient's labs have been reviewed at the time of admission sodium 134 potassium 4.3 chloride 97 BUN 20 creatinine 0.79 hemoglobin A1c of 6.1 troponin less than 0.012 CBC within normal limits. He has been admitted for further management with neurology consult. Review of systems -could not be done as the patient is confused and has been trying to get out of the bed. As per the nursing staff patient has dementia and has been trying to get out of the bed and he keeps saying that he has to urinate even though she helped him few minutes back. 01/20/2020 Patient was lying in bed, awake and alert however she looks confused mildly, she is unaware of her presentation. She also has some slurred speech. Patient is hemodynamically stable, her CBC and BMP are unremarkable. LDL 68 Brain MRI showing a right thalamic versus right internal capsule acute infarct She is currently on normal saline at 100 lower to 50 mL per hour, also patient was started on aspirin 325 mg. Neurologist is on the case 01/21/2020 Patient lying comfortable in bed, he still suffer from left hemiparesis which looks stable from yesterday, however patient has difficulty standing up even with help. PT/OT and online health and fitness coach recommended [facility] for rehab, however refused last time, we going to check with family again regarding their wishes for home with home health care versus subacute rehab Review of systems CONSTITUTIONAL: No fever, no malaise, no fatigue. HEENT: No recent visual problems or hearing problems. Denied any sore throat. CARDIOVASCULAR: No orthopnea, PND, no palpitations, no syncope. PULMONARY: No shortness of breath, no cough, no hemoptysis. GASTROINTESTINAL: No diarrhea, no nausea, no vomiting, no abdominal pain. Normoactive bowel sounds. HEMATOLOGICAL: Denies any bleeding or petechiae. GENITOURINARY: Denies any burning micturition, frequency, or urgency. MUSCULOSKELETAL/RHEUMATOLOGICAL: Denies any joint pain, swelling, or any muscle pain. ENDOCRINE: Denies any polyuria or polydipsia. Active Medications Generic Name Dose Route Start Last Admin Trade Name Preetq PRN Reason Stop Dose Admin Aspirin 325 mg 01/19/20 22:53 01/20/20 08:46 Aspirin PO 325 mg DAILY MACARIO Administration Atorvastatin Calcium 40 mg 01/19/20 13:30 01/20/20 08:46 Lipitor PO 40 mg DAILY MACARIO Administration Clopidogrel Bisulfate 75 mg 01/20/20 15:15 01/20/20 17:38 Plavix PO 75 mg DAILY MACARIO Administration Donepezil HCl 20 mg 01/19/20 21:00 01/19/20 19:54 Aricept PO 20 mg HS MACARIO Administration Sodium Chloride 1,000 mls @ 50 mls/hr 01/18/20 23:00 01/20/20 17:09 Saline 0.9% IV Not Given .Q20H MACARIO Memantine 10 mg 01/19/20 21:00 01/20/20 08:46 Namenda PO 10 mg BID MACARIO Administration Multivitamins 1 each 01/20/20 09:00 01/20/20 08:46 Theragran PO 1 each DAILY MCAARIO Administration Nitroglycerin 0.4 mg 01/19/20 13:21 Nitrostat SUBLINGUAL Q5M PRN Chest Pain Pantoprazole Sodium 40 mg 01/20/20 07:30 01/20/20 06:35 Protonix PO 40 mg [id number] MACARIO Administration Quetiapine Fumarate 25 mg 01/19/20 21:18 01/19/20 21:44 Seroquel PO 25 mg HS PRN Administration Agitation or Acute Anxiety Objective - Vital Signs Vital signs: Vital Signs Temp 97.8 F 01/22/20 08:00 Pulse 80 01/22/20 08:00 Resp 20 01/22/20 08:00 BP 145/71 01/22/20 08:00 Pulse Ox 96 01/22/20 08:00 Intake & Output 01/21/20 01/22/20 01/22/20 18:59 06:59 18:59 Intake Total 120 118 Balance 120 118 Weight 64.5 kg Intake: Oral 120 118 Other: Voiding Method Urinal Urinal Urinal Incontinent Diaper Diaper Incontinent Incontinent # Voids 1 1 - Exam -GENERAL: The patient is alert and oriented x1-2, not in any acute distress. Well developed, well nourished. HEENT: Pupils are round and equally reacting to light. EOMI. No scleral icterus. No conjunctival pallor. Normocephalic, atraumatic. No pharyngeal erythema. No thyromegaly. CARDIOVASCULAR: S1 and S2 present. No murmurs, rubs, or gallops. PULMONARY: Chest is clear to auscultation, no wheezing or crackles. ABDOMEN: Soft, nontender, nondistended, normoactive bowel sounds. No palpable organomegaly. MUSCULOSKELETAL: No joint swelling or deformity. EXTREMITIES: No cyanosis, clubbing, or pedal edema. -NEUROLOGICAL: Cranial nerves are grossly intact. Patient with left hemiparesis in the left upper and lower extremity. Sensation is intact SKIN: No rashes. no petechiae. - Labs CBC & Chem 7: 01/20/20 05:57 01/20/20 05:57 Assessment and Plan Assessment: Left-sided weakness possibly secondary to CVA, right thalamic or internal capsular infarct Dementia Coronary artery disease Hypertension Hyperlipidemia Plan: This is a pleasant 84 years old male who presents with acute stroke, Continue with aspirin and statins started by neurology service. Patient's home medications have been restarted. Continue with the current medication regimen. Overall prognosis is guarded. Further recommendations to follow depending on the progress of the patient. We will discuss with family again about need to go to rehab Labs and medication were reviewed.. Continue same treatment. Continue with symptomatic treatment. Resume home medication. Monitor lytes and vitals. DVT and GI prophylaxis. Further recommendations of the clinical course of the patient DVT prophylaxis: Subcutaneous heparin GI Prophylaxis: Pepcid PT/OT: Recommended subacute rehab however family refused Prognosis is guarded
[2020-01-22 14:35] VITALS: BP 146/81; PULSE 75
--- NOTE | 2020-01-22 14:56 | P.PN ---
Subjective Progress Note Date: 01/22/20 Patient appears much better today. Although was no new complaints. Patient is laying in the bed, comfortable. Denies headache. Objective - Vital Signs Vital signs: Vital Signs Temp 97.8 F 01/22/20 08:00 Pulse 75 01/22/20 12:00 Resp 20 01/22/20 12:00 BP 146/81 01/22/20 12:00 Pulse Ox 96 01/22/20 12:00 Intake & Output 01/21/20 01/22/20 01/22/20 18:59 06:59 18:59 Intake Total 120 188 Balance 120 188 Weight 64.5 kg Intake: Oral 120 188 Other: Voiding Method Urinal Urinal Urinal Incontinent Diaper Diaper Incontinent Incontinent # Voids 1 1 - Exam Patient is alert and awake. Mentation is stable. Speech and language functions appears normal. Cranial nerves revealed very minimal left facial weakness, much improved. Muscle strength shows very minimal left pronator drift, was better than yesterday. The strength is normal in the right arm and right leg. On the left side, deltoid is 5-, biceps 5-, triceps 5 lap welder 5 to 5-. Hip flexion 4+5- ankle dorsiflexion normal. Patient has clear Babinski on the left side. Sensations are equal. Patient is moderately ataxic for [id number] testing on the left. Tone and bulk of muscles normal. - Labs CBC & Chem 7: 01/20/20 05:57 01/20/20 05:57 Assessment and Plan Assessment: * Acute ischemic stroke, involving the posterior limb of right internal capsule, most likely lacunar stroke. Patient has left ataxic hemiparesis. Symptoms have improved significantly as compared to yesterday. * Cognitive impairment. Plan: * Patient has improved significantly. Neurologically clear for discharge. * PT OT has evaluated the patient and apparently cleared for discharge. * MRI of the brain confirmed acute ischemic stroke involving the posterior limb of right internal capsule, likely lacunar ischemic stroke. No embolic source noted on the echo and CTA. * Hemoglobin A1c 6.1. * Patient was on aspirin 81 mg daily prior to this stroke. The dose has been increased to 325 mg. Continue Lipitor 40 mg. We will add Plavix 75 mg daily for 21 days, then stay on aspirin 325 mg daily. Patient to follow up with neurologist as an outpatient in 2-3 weeks. Alternate choice also includes keeping on monotherapy with Plavix 75 mg long-term. * Continue Aricept and Namenda 10 mg twice a day for dementia. * Blood pressure is 136/90 which is optimal. Patient not on any antih ypertensive medication. May consider some IV fluids. * Physical medicine and rehabilitation consultation noted.
== END 2020-01-22 18:13 | disposition home health service (06) | DRG 65 ==
LOC: EC 21:04 → 3SCARD 22:54
PROVIDERS: ADMIT Internal Medicine; ATTEND Internal Medicine
PROC: 05HD33Z Insertion of Infusion Device into Right Cephalic Vein, Percutaneous Approach (ICD-10-PCS; principal; 2020-01-20 07:30)
DX: I63.81 Other cerebral infarction due to occlusion or stenosis of small artery (principal); G81.94 Hemiplegia, unspecified affecting left nondominant side; J98.11 Atelectasis; F03.90 Unspecified dementia, unspecified severity, without behavioral disturbance, psychotic disturbance, mood disturbance, and anxiety; I11.9 Hypertensive heart disease without heart failure; R40.2362 Coma scale, best motor response, obeys commands, at arrival to emergency department; R40.2142 Coma scale, eyes open, spontaneous, at arrival to emergency department; R40.2242 Coma scale, best verbal response, confused conversation, at arrival to emergency department; I25.10 Atherosclerotic heart disease of native coronary artery without angina pectoris; E78.5 Hyperlipidemia, unspecified; I44.0 Atrioventricular block, first degree; R32 Unspecified urinary incontinence; R29.702 NIHSS score 2; I35.8 Other nonrheumatic aortic valve disorders; R41.89 Other symptoms and signs involving cognitive functions and awareness; R47.81 Slurred speech; W19.XXXA Unspecified fall, initial encounter; Z95.5 Presence of coronary angioplasty implant and graft; Z79.899 Other long term (current) drug therapy; Z79.82 Long term (current) use of aspirin; Z91.040 Latex allergy status
CPT/HCPCS: 36410; 36415; 70450; 70496; 70498; 70551; 71046; 76937; 80048; 80053; 80061; 82607; 82746; 83036; 84484; 85025; 85610; 85730; 93005; 93306; 96360; 99285